=== PATIENT | female | born 1995 | race Caucasian/White ===

== ENCOUNTER 2017-08-24 16:44 | Emergency (ER) | payer SELFPAY ==
[~2017-08-24] VITALS: Ht 152.4 cm; Wt 59.0 kg
[2017-08-24] MEDS ORDERED: IBUPROFEN 600MG TABLET PO ONE (18:30)
[2017-08-24 18:34] VITALS: BP 121/89
== END 2017-08-24 18:38 | disposition home or self-care (01) ==
LOC: ER 17:11
DX: M25.561 Pain in right knee (principal); W19.XXXA Unspecified fall, initial encounter; Y93.89 Activity, other specified; Y92.89 Other specified places as the place of occurrence of the external cause; Y99.8 Other external cause status
CPT/HCPCS: 73560; 99284

== ENCOUNTER 2017-12-12 19:53 | Emergency (ER) | payer MEDICAID ==
[~2017-12-12] VITALS: Ht 149.9 cm; Wt 79.3 kg
[2017-12-12] MEDS ORDERED: ACETAMINOPHEN 500MG TABLET PO ONE (23:00)
[2017-12-12] MEDS ORDERED: IBUPROFEN 600MG TABLET PO ONE (23:00)
[2017-12-12 23:27] VITALS: BP 112/79
== END 2017-12-12 23:37 | disposition home or self-care (01) ==
LOC: ER 19:53
DX: J06.9 Acute upper respiratory infection, unspecified (principal)
CPT/HCPCS: 99283